=== PATIENT | female | born 1985 | race Caucasian/White ===

== ENCOUNTER 2019-05-19 01:51 | Emergency (ER) | payer MEDICAID, OTHER ==
[2019-05-19] MEDS: ACETAMINOPHEN 325 MG TAB PO (03:37)
== END 2019-05-19 04:15 | disposition home or self-care (01) ==
LOC: FTE 01:51
DX: O26.891 Other specified pregnancy related conditions, first trimester (principal); R10.9 Unspecified abdominal pain; Z3A.13 13 weeks gestation of pregnancy
CPT/HCPCS: 76805; 99284-25